=== PATIENT | male | born 1960 | race Caucasian/White ===

== ENCOUNTER 2020-02-24 07:56 | Emergency (ER) | payer OTHER, SELFPAY ==
[2020-02-24] MEDS ORDERED: Sodium Chloride 0.9% 1,000 ML IV ONE (08:04)
[2020-02-24] MEDS: Sodium Chloride 0.9% 10 ML Syringe FLUSH PRN ×5 (08:04→08:22)
[2020-02-24] MEDS ORDERED: EPINEPHrine 1:10,000 1 MG/10 ML Syringe IVPUSH ONE ×4 (08:06→08:22)
--- NOTE | 2020-02-24 09:23 | EDM.PDOC ---
ED HPI GENERAL MEDICAL PROBLEM - General Stated Complaint: UNRESPONSIVE Time Seen by Provider: 02/24/20 07:56 Source of Information: Reports: EMS, Family History Limitations: Reports: Altered Mental Status - History of Present Illness INITIAL COMMENTS - FREE TEXT/NARRATIVE: c/o unresponsive pt lives alone, had been staying with his sister the past 2d as he was not feeling well, drinking fluids frequently (no alcohol in years), making frequent trips to the bathroom during the night less coherent this AM and sister called EMS, BP 131/71 and HR 130s by EMS, no temp obtained, not able to get a PO, EMS called ahead with report of unresponsive pt and rapid response called ~10 min prior to pt arrival 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 Bag ventilation begun immediately and preparations were made for intubation as pt had no pulse. Pedro from anesthesia arrived 5 min after the pt, however pt had lost his pulse pt arrived at 7:56a with HR 119, at 07:59:42 pt with regular sinus tach with HR 120, however 2 minutes later he had bradycardia down to 45 by 8:01:50 and was asystole and flat line at 8:02:01 CPR began immediately with chest compressions that was changed a few minutes later to Ramirez, bag ventilation continued and changed to ET by Pedro sister reports that pt had IGT, she was very tearful, consoled as best possible, operations manager/coordinator Susu was at bedside as well I spoke to sister in lobby at 08:25 with YOLANDE Kuo, code was called at 08:28 and sister brought to bedside pt given epi x 4 and went from flat line to PEA, no effective contractions on POCUS except with Ramirez, cardiac standstill noted during brief 5-10 second pauses of Ramirez pt with dilated L pupil 6 mm on arrival with R pupil 4 mm, neither reactive, at time of both pupils were 6 mm and nonreactive, RUE was now cool to the axilla Pedro from anesthesia confirmed lack of pupil responsiveness shortly after he completed the intubation postmortem CxR showed no infiltrates in the mid and peripheral lungs taveras, clear CVAs, there was haziness in the mediastinal area c/w localized pul edema from compressions from the Ramirez, ET tube was 2.5 cm above the jorge and well positioned sister was at the bedside and quite tearful, oldest son Shakir (phone [phone]) was at the bedside shortly after with his Juan M, they spoke with operations manager/coordinatorron Cristobal as well CxR and all labs were reviewed with Shakir, he was provided a copy of the labs at his request as well as the initial rhythm strips no temp was able to be obtained prior to arrest, no 12-lead EKG obtained prior to arrest, did show ST on monitor that was regular, no ectopy, no ST elevation on monitor pt with marked inc'd glu 1333 c/w NKHS, SG 1.015 and actually wnl despite marked dehydration and only 15 mg/dl ketones found in urine, insufficient blood for serum ketones EMS started IV in R antecub, a small amount of blood obtained from IV that was hemolyzed, additional attempts at IV start on LUE were unsuccessful family reports PCP Dr Cai in [place], they are part of the [facility] system, call placed by YOLANDE Guerrero to request recent labs and last office visit, son Shakir told that he would be notified of comparison labs if they become available utox with positive benzo, opiates and ampheta MPMP with last fill of lorazepam 1 mg #84 on 02-12-20 at [facility] [facility] Rx'ed by Candelario cai MD form [place]. On same date also filled hc/apap #140 at same pharmacy and same physician. ESR 24 and CRP 1.9 however doubt infectious etiology (CxR and u/a neg, clinical course most c/w with metabolic decline), COVID swab sent to [facility] as precaution altho family reports that he had been self isolating baseline ESR 17 (see below) TP 8.2 and at upper limit normal, c/w dehydration, not c/w infection records received from [facility] at 10:13a PMH CV: abnl BP, htn, hyperlipidemia ENDOCR: abnl TSH, hyperglycemia, NIDDM type 2 ENT: all rhinitis PAIN: chr neck pain, chr pain syndrome, chr pain both knees, chr pain management, muscle spasm of back, sciatica GI: chronic reflux esophagitis, diverticulosis, dyspepsis, Carver's esophagus NEURO: cognitive DO, peripheral neuropathy, TBI BEH: depression, DANIEL, insomnia, panic disorder, bipolar ORTHO: lumbar spondylolysis, lumbosacral facet joint syndrome PUL: COPD, nocturnal hypoxia, sleep apnea, snoring, current every day smoker 2 ppd RECENT LABS PER [facility] 6m ago on 08-27-19 with CBC neg with WBC 8.1, hgb 16.0, plt 279, segs 62.0% 6m ago with trop <0/.05 (reference 0.00-0.40) 6m ago with ESR 17 (reference 0-15) 6m ago CMP with LFTs wnl, TP 7.8, alb 4.4, glu 149, BUN/creat 6/0.8, K 4.3, CO2 25, non-fasting 6m ago u/a with SG 1.015, ket neg 6m ago utox with oxycodone positive, all else negative these labs were reported to son Shakir at 10:19a, I did recommend to Shakir that he and members of the family may want to meet with PCP Dr Cai in the near future for further discussion regarding pt's health hx and health implications for other family members EMT brought in meds form home: alb HFA, metoprolol tartrate 100 mg BID #60 that was empty with fill 10/23/19 and "4 refills before 12/29/19". Lorazepam 1mg TID #84, filled 02/12/20, there were #27 tabs remaining with 3 cig butts mixed in with the pills. Pt should have #58 tabs left, not the #27 that were present. ED ROS GENERAL - Review of Systems Review Of Systems: Unable To Obtain (some limited hx obtained from sister) Reason Not Obtained: unresponsive ED EXAM, CPR - Physical Exam Exam: See Below Limited By: Unresponsive Eye Exam: Bilateral Eye: Other (pupils 4/6 mm L/R and fixed on arrival) Ears: Normal External Exam Nose: Normal Inspection Throat/Mouth: Normal Inspection, Normal Lips, Other (secretions suctioned from o-p prior to 2nd successful pass of ET tube as per anethetist) Head: Atraumatic, Normocephalic Respiratory Chest: Lungs Clear, Other (inadequate ventilation on arrival, bag mask ventilated without difficulty, there were some rhonchi and partial airway resistance with slight flex of neck, 2 pillows removed from under the head and 1 pillow placed under the shoulders which allowed better ventilation, oral airway placed by EMT with bag ventilations prior to intubation) Cardiovascular: Other (heart sounds distant and regular on arrival) GI/Abdominal Exam: Soft, No Distention Extremities: Normal Inspection, No Pedal Edema Skin Exam: Warm, Intact, Normal Color, No Rash Course - Orders/Labs/Meds Orders: Active Orders 24 hr Category Date Time Status Chest 1V Frontal [CR] Stat Exams 02/24/20 08:39 Ordered Labs: Laboratory Tests 02/24/20 02/24/20 02/24/20 Range/Units 07:07 08:05 08:05 WBC (4.5-12.0) X10-3/uL RBC (4.30-5.75) x10(6)uL Hgb (13.5-17.8) g/dL Hct (30.0-51.3) % MCV (80-96) fL MCH (27.7-33.6) pg MCHC (32.2-35.4) g/dL RDW (11.5-15.5) % Plt Count (125-369) X10(3)uL MPV (7.4-10.4) fL Add Manual Diff Neutrophils % (Manual) (46-82) % Band Neutrophils % (0-6) % Lymphocytes % (Manual) (13-37) % Monocytes % (Manual) (4-12) % Eosinophils % (Manual) (0-5) % Macrocytosis ESR 24 H (0-15) mm/hr POC VBG pH 6.95 L (7.31-7.41) POC VBG pCO2 46.5 (41-51) mmHG POC VBG HCO3 10.3 L (23-28) mmol/L POC VBG Total CO2 12 L (24-29) mmol/L POC VBG Base Excess -22 L (-2-3) mmol/L Glucose (80-116) mg/dL Lactic Acid 16.3 H* (0.4-2.0) mmol/L Troponin I (4.0-60.3) pg/mL C-Reactive Protein (0.5-0.9) mg/dL NT-Pro-B Natriuret Pep (<=125) pg/mL Urine Color (YELLOW) Urine Appearance (CLEAR) Urine pH (5.0-6.5) Ur Specific [place] (1.010-1.025) Urine Protein (NEGATIVE) mg/dL Urine Glucose (UA) (NORMAL) mg/dL Urine Ketones (NEGATIVE) mg/dL Urine Occult Blood (NEGATIVE) Urine Nitrite (NEGATIVE) Urine Bilirubin (NEGATIVE) Urine Urobilinogen (NEGATIVE) mg/dL Ur Leukocyte Esterase (NEGATIVE) Urine Opiates Screen (NEGATIVE) Ur Oxycodone Screen (NEGATIVE) Ur Propoxyphene Screen (NEGATIVE) Ur Barbituates Screen (NEGATIVE) Ur Tricyclics Screen (NEGATIVE) Ur Phencyclidine Scrn (NEGATIVE) Ur Amphetamine Screen (NEGATIVE) Urine MDMA Screen (NEGATIVE) U Benzodiazepines Scrn (NEGATIVE) U Cocaine Metab Screen (NEGATIVE) U Marijuana (THC) Screen (NEGATIVE) 02/24/20 02/24/20 02/24/20 Range/Units 08:05 08:10 08:10 WBC (4.5-12.0) X10-3/uL RBC (4.30-5.75) x10(6)uL Hgb (13.5-17.8) g/dL Hct (30.0-51.3) % MCV (80-96) fL MCH (27.7-33.6) pg MCHC (32.2-35.4) g/dL RDW (11.5-15.5) % Plt Count (125-369) X10(3)uL MPV (7.4-10.4) fL Add Manual Diff Neutrophils % (Manual) (46-82) % Band Neutrophils % (0-6) % Lymphocytes % (Manual) (13-37) % Monocytes % (Manual) (4-12) % Eosinophils % (Manual) (0-5) % Macrocytosis ESR (0-15) mm/hr POC VBG pH (7.31-7.41) POC VBG pCO2 (41-51) mmHG POC VBG HCO3 (23-28) mmol/L POC VBG Total CO2 (24-29) mmol/L POC VBG Base Excess (-2-3) mmol/L Glucose 1333 H* (80-116) mg/dL Lactic Acid (0.4-2.0) mmol/L Troponin I 97.2 H* (4.0-60.3) pg/mL C-Reactive Protein 1.9 H (0.5-0.9) mg/dL NT-Pro-B Natriuret Pep 1048 H* (<=125) pg/mL Urine Color (YELLOW) Urine Appearance (CLEAR) Urine pH (5.0-6.5) Ur Specific [place] (1.010-1.025) Urine Protein (NEGATIVE) mg/dL Urine Glucose (UA) (NORMAL) mg/dL Urine Ketones (NEGATIVE) mg/dL Urine Occult Blood (NEGATIVE) Urine Nitrite (NEGATIVE) Urine Bilirubin (NEGATIVE) Urine Urobilinogen (NEGATIVE) mg/dL Ur Leukocyte Esterase (NEGATIVE) Urine Opiates Screen (NEGATIVE) Ur Oxycodone Screen (NEGATIVE) Ur Propoxyphene Screen (NEGATIVE) Ur Barbituates Screen (NEGATIVE) Ur Tricyclics Screen (NEGATIVE) Ur Phencyclidine Scrn (NEGATIVE) Ur Amphetamine Screen (NEGATIVE) Urine MDMA Screen (NEGATIVE) U Benzodiazepines Scrn (NEGATIVE) U Cocaine Metab Screen (NEGATIVE) U Marijuana (THC) Screen (NEGATIVE) 02/24/20 02/24/20 02/24/20 Range/Units 08:10 08:10 08:10 WBC 19.5 H (4.5-12.0) X10-3/uL RBC 5.41 (4.30-5.75) x10(6)uL Hgb 17.0 (13.5-17.8) g/dL Hct 56.0 H (30.0-51.3) % MCV 103.7 H (80-96) fL MCH 31.4 (27.7-33.6) pg MCHC 30.3 L (32.2-35.4) g/dL RDW 13.3 (11.5-15.5) % Plt Count 110 L (125-369) X10(3)uL MPV 11.2 H (7.4-10.4) fL Add Manual Diff Yes Neutrophils % (Manual) 73 (46-82) % Band Neutrophils % 5 (0-6) % Lymphocytes % (Manual) 15 (13-37) % Monocytes % (Manual) 5 (4-12) % Eosinophils % (Manual) 2 (0-5) % Macrocytosis Moderate H ESR (0-15) mm/hr POC VBG pH (7.31-7.41) POC VBG pCO2 (41-51) mmHG POC VBG HCO3 (23-28) mmol/L POC VBG Total CO2 (24-29) mmol/L POC VBG Base Excess (-2-3) mmol/L Glucose (80-116) mg/dL Lactic Acid (0.4-2.0) mmol/L Troponin I (4.0-60.3) pg/mL C-Reactive Protein (0.5-0.9) mg/dL NT-Pro-B Natriuret Pep (<=125) pg/mL Urine Color Yellow (YELLOW) Urine Appearance Clear (CLEAR) Urine pH 5.0 (5.0-6.5) Ur Specific [place] 1.015 (1.010-1.025) Urine Protein 30 H (NEGATIVE) mg/dL Urine Glucose (UA) >1000 H (NORMAL) mg/dL Urine Ketones 15 H (NEGATIVE) mg/dL Urine Occult Blood Large H (NEGATIVE) Urine Nitrite Negative (NEGATIVE) Urine Bilirubin Negative (NEGATIVE) Urine Urobilinogen Normal (NEGATIVE) mg/dL Ur Leukocyte Esterase Negative (NEGATIVE) Urine Opiates Screen Positive H (NEGATIVE) Ur Oxycodone Screen Negative (NEGATIVE) Ur Propoxyphene Screen Negative (NEGATIVE) Ur Barbituates Screen Negative (NEGATIVE) Ur Tricyclics Screen Negative (NEGATIVE) Ur Phencyclidine Scrn Negative (NEGATIVE) Ur Amphetamine Screen Positive H (NEGATIVE) Urine MDMA Screen Negative (NEGATIVE) U Benzodiazepines Scrn Positive H (NEGATIVE) U Cocaine Metab Screen Negative (NEGATIVE) U Marijuana (THC) Screen Negative (NEGATIVE) - Re-Assessments/Exams Free Text/Narrative Re-Assessment/Exam: 02/24/20 10:45 pt of natural causes, no suspicious circumstances, son Shakir offered an autopsy and declined no evidence of PR (no ectopy, trop 1.5x ULN and c/w metabolic derangement, no ST elevation on monitor) elevated BNP c/w high output failure and dehydration, not c/w primary HF no pul edema except d/t Ramirez while pt had 15 mg/dl ketones in urine, this is c/w pH 6.95 and lactic acid 16, he did not have the >80 mg/dl ketones that would be expected in DKA, nor would a BS reach 1333 in primary DKA pt likely had worsening renal function and hyperglycemia over a period of weeks, if not months, although renal function at baseline 6m ago immediate cause of is hyperosmolar nonketotic syndrome of several weeks duration with associated chronic renal insufficiency (days), metabolic acidosis (days), severe dehydration (days), nicotine dependency (40 years), COPD (years) Departure - Departure Time of Disposition: 08:28 Disposition: 20 Preliminary Cause of *Q: Cardiac Arrest Clinical Impression: Cardiac arrest, Non-ketotic hyperosmolar coma, Hyperglycemia without ketosis, Metabolic acidosis due to diabetes mellitus, Acute renal insufficiency, Severe dehydration, Nocturnal polyuria, Polydipsia, - Discharge Information *PRESCRIPTION DRUG MONITORING PROGRAM REVIEWED*: Yes *COPY OF PRESCRIPTION DRUG MONITORING REPORT IN PATIENT RENEE: No - My Orders Last 24 Hours: My Active Orders 02/24/20 08:39 Chest 1V Frontal [CR] Stat - Assessment/Plan Last 24 Hours: My Active Orders 02/24/20 08:39 Chest 1V Frontal [CR] Stat
--- NOTE | 2020-02-24 09:28 | PCM.SN.2 ---
- Free Text/Narrative Note: ANESTHESIA SERVICES Date: 02/24/2020 Time: 804 to 831 Dx: Cardiac Arrest Rx: Oral Intubation Procedure: Oral Intubation I was called for airway management per the request of the ED physician. Upon arrival, the patient was in cardiac arrest [PEA] with ventilation BMV and oral airway. The physician requested that I intubate this patient. Using the #3 Glidescope, I made one pass with the need to suction out a large amount of thick yellow sections surrounding the vocal cords [also on the oral airway]. On the second pass, I intubated this patient X 1 attempt with a 8.0 ETT visualizing the vocal cords well. Once the ETT cuff was inflated, I had positive EtCO2 per a CO2 manometer and bilateral breath sounds. The tube was secured and I continued manual ventilation using 100% Ambu-Bag at 15 L/M. After intubation, the patient continued to receive CPR in PEA and both pupils were completely dilated and fixed with no reaction to light. Cecil Caraballo, GAUTAM,A
--- NOTE | 2020-02-25 10:49 | CR ---
INDICATION: Postmortem, arrived DKA. Questioned pneumonia. CHEST, 1 VIEW: AP portable supine view of the chest 02/24/20 revealed somewhat heavy markings at the lung bases, which could be on the basis of patchy pneumonia. The heart appears enlarged but is emphasized by the supine AP positioning and poor inspiration. Endotracheal tube is noted in place with its tip several centimeters above the jorge. Overlying EKG leads and snap noted. MTDD
== END 2020-02-24 14:05 | disposition expired ==
LOC: FB.ED 07:56
DX: I46.9 Cardiac arrest, cause unspecified (principal); E11.01 Type 2 diabetes mellitus with hyperosmolarity with coma; E11.11 Type 2 diabetes mellitus with ketoacidosis with coma; E86.0 Dehydration; N28.9 Disorder of kidney and ureter, unspecified; R35.1 Nocturia; R63.1 Polydipsia; Z20.828 Contact with and (suspected) exposure to other viral communicable diseases
CPT/HCPCS: 31500; 36415; 36680; 51702; 71045; 80305; 81003; 82565; 82803; 82947; 83605; 83880; 84484; 84520; 85025; 85651; 86140; 87635; 92950; 96374; 99285; 99291; J0171; J7030; U0002